=== PATIENT | female | born 1970 | race African-American/Black ===

== ENCOUNTER 2024-05-01 21:15 | Inpatient (IN) | payer OTHER, SELFPAY ==
[~2024-05-01 21:15] MED LIST: Iopamidol-370 76% 500 ML MDV (1 ML CHARGE) ONE
[2024-05-01] MEDS ORDERED: Acetaminophen 500 MG TAB ONE (22:04)
[2024-05-01] MEDS ORDERED: Nitroglycerin 2% Ointment 1 INCH/1 GM Packet ONE (22:04)
[2024-05-01 22:08] LABS: #Basophils 0.07 10x3/uL (0.0-0.2); %Basophils 0.5 % (0.0-1.0); %Eosinophils 0.2 % (0.0-10.0); %Lymphocytes 19.8 % (21.0-51.0); %Monocytes 9.4 % (0.0-10.0); %Neutrophils 69.5 % (42.0-75.0); Hematocrit 25.7 % (36.0-47.0); Hemoglobin 8.1 g/dL (12.0-16.0); Mean Corpuscular HGB CONC 31.5 g/dL (32.0-36.0); Mean Corpuscular Hemoglobin 23.9 pg (27.0-31.0); Mean Corpuscular Volume 75.8 fL (78.0-98.0); Mean Platelet Volume 11.3 fL (7.4-10.4); Platelet Count 268 10x3/uL (130-400); RBC Distribution Width 14.1 % (11.5-14.5); Red Blood Cell (RBC) Count 3.39 mill/uL (4.20-5.40)
[2024-05-01 22:22] LABS: INR-International Normal Ratio 1.2; Prothrombin Time 15.1 sec (12.0-14.7)
[2024-05-01 22:23] LABS: PTT 29.8 sec (22.9-36.1)
[2024-05-01 22:25] LABS: Bilirubin Negative (Negative); Blood, Urine 3+ (Negative); CAUTI Indications for Culture Alt mental st,lethar; Clarity Turbid (Clear); Glucose, Urine (Dipstick) Normal (Negative); Ketone, Urine Negative (Negative); Leukocyte 75 Leu/uL (Negative); Nitrite Negative (Negative); Protein, Urine (Dipstick) 600 mg/dL (Neg-Trace); RBC/HPF 0-3 HPF (0-3); Specific Gravity, Urine 1.023 (1.002-1.036); Urobilinogen Normal mg/dL (Less than 2); WBC/HPF 21-50 HPF (0-3)
[2024-05-01 22:25] LABS: BHCG - Serum Negative (NEGATIVE); Pregs Control Background? CLEAR/WHITE (CLR/WHITE); Pregs Control Bar Appear? YES (CONTROL BAR)
[2024-05-01] MEDS ORDERED: Aspirin 300 MG Suppository ONE (22:26)
[2024-05-01 22:30] LABS: Amphetamine Not Detected (NotDetected); Barbiturates Screen Not Detected (NotDetected); Benzodiazepine Screen Not Detected (NotDetected); Cocaine Metabolite Screen Not Detected (NotDetected); Methadone Not Detected (NotDetected); Methamphetamine Not Detected (NotDetected); Opiate Screen Not Detected (NotDetected); Oxycodone Screen Not Detected (NotDetected); Phencyclidine (PCP) Not Detected (NotDetected); THC/Cannabinoid Screen Not Detected (NotDetected); Tricyclic Screen Not Detected (NotDetected)
[2024-05-01 22:30] LABS: Acetaminophen Less than 10 mcg/mL (10.0-30.0); Alcohol Less than 10.0 mg/dL (Less than 10); Lipase 10 U/L (8-78); Magnesium 1.7 mg/dL (1.6-2.6); Salicylate Less than 8.0 mg/dL (15.0-30.0)
[2024-05-01 22:31] LABS: Bacteria/HPF 1+ HPF (None Seen)
[2024-05-01 22:32] LABS: Urine Culture Reflex Yes Yes
[2024-05-01 22:42] LABS: Troponin I 0.069 ng/mL (< 0.028)
[2024-05-01 22:44] LABS: CK (CPK) 4483 U/L (29-168)
[2024-05-01 22:55] LABS: ALT (SGPT) 26 U/L (8-55); AST (SGOT) 90 U/L (5-34); Albumin 2.9 g/dL (3.5-5.0); Alkaline Phosphatase 81 U/L (40-110); Anion Gap 16 mmol/L (10-20); BUN (Urea Nitrogen) 45 mg/dL (9.8-20.1); Bilirubin, Total 0.5 mg/dL (0.2-1.2); Calc. Creatinine Clearance 0 mL/min (70-130); Calcium 8.8 mg/dL (7.8-10.44); Carbon Dioxide 16 mmol/L (22-29); Chloride 120 mmol/L (98-107); Estimated GFR 9; Globulin 4.1 g/dL (2.4-3.5); Glucose 79 mg/dL (70-105); Potassium 4.3 mmol/L (3.5-5.1); Sodium 148 mmol/L (136-145)
[2024-05-01] MEDS ORDERED: Acetaminophen 650 MG Suppository PR PRN (23:10)
[2024-05-01] MEDS ORDERED: Ondansetron PF 4 MG/2 ML Vial IVP PRN (23:10)
[2024-05-01] MEDS ORDERED: Ondansetron ODT 4 MG TAB PO PRN (23:10)
[2024-05-01 23:13] LABS: Influenza A by NAA Not Detected (NotDetected); Influenza B by NAA Not Detected (NotDetected); SARS-CoV-2 NAA Rapid Test Not Detected (NotDetected)
[2024-05-02 01:38] LABS: Troponin I 0.057 ng/mL (< 0.028)
[2024-05-02] MEDS: Dextrose 5%-Lactated Ringers 1,000 ML IV SCH (03:11)
[2024-05-02 03:38] VITALS: BMI 27.3
[2024-05-02 03:45] LABS: Protein, Urine Random Quant 1395 mg/dL (1-14)
[2024-05-02 03:50] LABS: Sodium, Urine 67 mmol/L (Not Available)
[2024-05-02] MEDS: cefTRIAXone\\ROCEPHIN 1 GM in Sodium Chloride 0.9% 100 ML IVPB SCH (03:56)
[2024-05-02 04:11] LABS: #Basophils 0.05 10x3/uL (0.0-0.2); #Eosinphils Less than 0.03 10x3/uL (0.0-0.7); %Basophils 0.4 % (0.0-1.0); %Eosinophils 0.1 % (0.0-10.0); %Lymphocytes 17.6 % (21.0-51.0); %Monocytes 7.4 % (0.0-10.0); %Neutrophils 73.8 % (42.0-75.0); Hematocrit 24.5 % (36.0-47.0); Hemoglobin 7.6 g/dL (12.0-16.0); Mean Corpuscular Hemoglobin 23.5 pg (27.0-31.0); Mean Corpuscular Volume 75.6 fL (78.0-98.0); Mean Platelet Volume 11.8 fL (7.4-10.4); Platelet Count 251 10x3/uL (130-400); RBC Distribution Width 14.3 % (11.5-14.5); Red Blood Cell (RBC) Count 3.24 mill/uL (4.20-5.40)
[2024-05-02 04:47] LABS: Anion Gap 14 mmol/L (10-20); BUN (Urea Nitrogen) 45 mg/dL (9.8-20.1); Calc. Creatinine Clearance 16 mL/min (70-130); Calcium 8.2 mg/dL (7.8-10.44); Carbon Dioxide 16 mmol/L (22-29); Chloride 120 mmol/L (98-107); Estimated GFR 10; Glucose 127 mg/dL (70-105); Potassium 4.3 mmol/L (3.5-5.1); Sodium 146 mmol/L (136-145)
[2024-05-02 04:53] LABS: Troponin I 0.058 ng/mL (< 0.028)
[2024-05-02] MEDS: hydrALAZINE 25 MG TAB PO SCH ×2 (07:45→09:42)
[2024-05-02] MEDS: NIFEdipine XL 30 MG ER.TAB PO SCH (09:42)
[2024-05-02] MEDS: Famotidine/PF 20 mg/2ml Vial SLOW IVP SCH (09:42)
[2024-05-02] MEDS: Aspirin 81 mg Enteric Coated Tablet PO SCH (09:42)
[2024-05-02] MEDS: Clopidogrel Bisulfate 75 MG TAB PO SCH (09:42)
[2024-05-02] MEDS: Famotidine 20 MG TAB PO SCH (09:42)
[2024-05-02] MEDS: hydrALAZINE 20 MG/ML VIAL SLOW IVP PRN (11:34)
[2024-05-02 11:37] LABS: Base Excess -6.4 mEq/L (-2.0 to +3.0); Calcium, Ionized (venous) 1.07 mmol/L (1.16-1.32); Chloride (VBG) 116 mmol/L (98-106); Hematocrit-VBG 24 % (36.0-47.0); Hemoglobin (Hb) 8.1 g/dL (11.7-16.0); Potassium (VBG) 4.61 mmol/L (3.70-5.30); Sodium 148 mmol/L (133-146); pH (venous) 7.379 (7.32-7.43)
[2024-05-02 11:42] LABS: Actual Bicarbonate (HCO3v) 24.7 mEq/L (22-28); Base Excess -1.7 mEq/L (-2.0 to +3.0); Calcium, Ionized (venous) 1.08 mmol/L (1.16-1.32); Chloride (VBG) 99 mmol/L (98-106); Hematocrit-VBG 50 % (36.0-47.0); Hemoglobin (Hb) 16.9 g/dL (11.7-16.0); Potassium (VBG) 3.33 mmol/L (3.70-5.30); Sodium 142 mmol/L (133-146); pH (venous) 7.331 (7.32-7.43)
[2024-05-02 12:10] VITALS: BMI 27.3
[2024-05-02 12:12] LABS: Hemoglobin A1c 6.2 % (4.0-6.0)
[2024-05-02] MEDS: Naloxone HCl 0.4 mg/ml Vial IV SCH (14:06)
[2024-05-02] MEDS: Labetalol HCl 100 MG/20 ML VIAL SLOW IVP PRN (14:55)
[2024-05-02] MEDS: Dextrose 5 %-0.45 % NaCl 1,000 ML IV SCH (16:37)
[2024-05-02] MEDS: cefTRIAXone\\ROCEPHIN 2 GM in Sodium Chloride 0.9% 100 ML IVPB SCH (21:38)
[2024-05-02] MEDS: Atorvastatin Calcium 40 MG TAB PO SCH (21:39)
[2024-05-02] MEDS: Pantoprazole 40 MG VIAL IVP SCH (21:39)
[2024-05-02] MEDS: Nitroglycerin 2% Ointment 1 INCH/1 GM Packet TOP SCH (21:39)
[2024-05-03 05:37] LABS: #Basophils 0.05 10x3/uL (0.0-0.2); %Basophils 0.4 % (0.0-1.0); %Eosinophils 1.1 % (0.0-10.0); %Lymphocytes 19.6 % (21.0-51.0); %Monocytes 8.3 % (0.0-10.0); %Neutrophils 69.1 % (42.0-75.0); Hematocrit 23.6 % (36.0-47.0); Hemoglobin 7.3 g/dL (12.0-16.0); Mean Corpuscular HGB CONC 30.9 g/dL (32.0-36.0); Mean Corpuscular Hemoglobin 23.5 pg (27.0-31.0); Mean Corpuscular Volume 76.1 fL (78.0-98.0); Mean Platelet Volume 12.3 fL (7.4-10.4); Platelet Count 225 10x3/uL (130-400); RBC Distribution Width 14.5 % (11.5-14.5)
[2024-05-03 06:30] LABS: Iron 34 ug/dL (50-170); Iron Binding Capacity, Total 174 mcg/dL (265-497)
[2024-05-03 06:55] LABS: Anion Gap 16 mmol/L (10-20); BUN (Urea Nitrogen) 43 mg/dL (9.8-20.1); CK (CPK) 1401 U/L (29-168); Calc. Creatinine Clearance 17 mL/min (70-130); Calcium 8.2 mg/dL (7.8-10.44); Carbon Dioxide 17 mmol/L (22-29); Chloride 118 mmol/L (98-107); Estimated GFR 10; Glucose 189 mg/dL (70-105); Iron 34 ug/dL (50-170); Iron Binding Capacity, Total 171 mcg/dL (265-497); Potassium 4.1 mmol/L (3.5-5.1); Sodium 147 mmol/L (136-145)
[2024-05-03 06:58] LABS: Ferritin 381.96 ng/mL (10-291); Vitamin B12 604 pg/mL (211-911)
[2024-05-03 08:41] LABS: HIV (1/2) Antibody/Antigen NONREACTIVE (NonReactive); HIV 1/2 INDEX 0.05 S/CO (<1.00)
[2024-05-03] MEDS ORDERED: Aspirin 300 MG Suppository PR SCH (09:00)
[2024-05-03] MEDS: hydrALAZINE 25 MG TAB PO SCH (09:06)
[2024-05-03] MEDS: Sodium Chloride 0.45% 1,000 ML IV SCH (09:07)
[2024-05-03] MEDS: NIFEdipine XL 60 MG ER.TAB PO SCH (09:07)
[2024-05-03 11:26] LABS: Syphilis Antibody Nonreactive (Nonreactive); Syphilis Antibody Index 0.13 S/CO (<1.00 Non-Reactive)
[2024-05-03] MEDS: Aspirin 81 mg Enteric Coated Tablet PO SCH (15:43)
[2024-05-03] MEDS: Diazepam 2 MG TAB PO PRN (15:43)
[2024-05-04 04:53] LABS: #Basophils 0.04 10x3/uL (0.0-0.2); %Basophils 0.3 % (0.0-1.0); %Lymphocytes 26.9 % (21.0-51.0); %Monocytes 8.5 % (0.0-10.0); %Neutrophils 61.3 % (42.0-75.0); Hematocrit 21.2 % (36.0-47.0); Hemoglobin 6.6 g/dL (12.0-16.0); Mean Corpuscular HGB CONC 31.1 g/dL (32.0-36.0); Mean Corpuscular Volume 77.1 fL (78.0-98.0); Mean Platelet Volume 11.8 fL (7.4-10.4); Platelet Count 195 10x3/uL (130-400); RBC Distribution Width 14.6 % (11.5-14.5); Red Blood Cell (RBC) Count 2.75 mill/uL (4.20-5.40)
[2024-05-04 05:24] LABS: Anion Gap 13 mmol/L (10-20); BUN (Urea Nitrogen) 41 mg/dL (9.8-20.1); Calc. Creatinine Clearance 17 mL/min (70-130); Calcium 7.6 mg/dL (7.8-10.44); Carbon Dioxide 15 mmol/L (22-29); Chloride 116 mmol/L (98-107); Estimated GFR 11; Glucose 82 mg/dL (70-105); Potassium 3.7 mmol/L (3.5-5.1); Sodium 140 mmol/L (136-145)
[2024-05-04 08:14] LABS: INR-International Normal Ratio 1.1; PTT 31.6 sec (22.9-36.1); Prothrombin Time 14.5 sec (12.0-14.7)
[2024-05-04 08:17] LABS: ALT (SGPT) 19 U/L (8-55); AST (SGOT) 29 U/L (5-34); Albumin 2.5 g/dL (3.5-5.0); Alkaline Phosphatase 67 U/L (40-110); Bilirubin, Direct 0.1 mg/dL (0.1-0.3); Bilirubin, Total 0.2 mg/dL (0.2-1.2); Protein, Total 5.8 g/dL (6.0-8.3)
[2024-05-04] MEDS ORDERED: IRON SUCROSE COMPLEX 100 MG/5 ML SLOW IVP SCH (08:30)
[2024-05-04] MEDS: Folic Acid 1 MG TAB PO SCH (09:23)
[2024-05-04] MEDS: Sodium Ferric Gluconate 125 MG in Sodium Chloride 0.9% 100 ML IVPB SCH (14:09)
[2024-05-04 15:01] LABS: Hematocrit 25.9 % (36.0-47.0); Hemoglobin 8.4 g/dL (12.0-16.0); Platelet Count 186 10x3/uL (130-400)
[2024-05-04 15:15] LABS: INR-International Normal Ratio 1.1; PTT 34.5 sec (22.9-36.1); Prothrombin Time 14.3 sec (12.0-14.7)
[2024-05-05] MEDS: Lorazepam 2 MG/ML VIAL SLOW IVP SCH (02:08)
[2024-05-05] MEDS ORDERED: Dextrose 5% in Water 1,000 ML IV PRN (10:31)
[2024-05-05] MEDS ORDERED: Glucagon 1 MG/ML KIT IM PRN (10:31)
[2024-05-05] MEDS ORDERED: Dextrose 50% Abboject 50 ML SYRINGE SLOW IVP PRN (10:31)
[2024-05-05 11:01] LABS: #Basophils 0.04 10x3/uL (0.0-0.2); %Basophils 0.4 % (0.0-1.0); %Eosinophils 2.6 % (0.0-10.0); %Lymphocytes 19.3 % (21.0-51.0); %Monocytes 8.7 % (0.0-10.0); %Neutrophils 67.8 % (42.0-75.0); Hematocrit 27.3 % (36.0-47.0); Hemoglobin 8.4 g/dL (12.0-16.0); Mean Corpuscular HGB CONC 30.8 g/dL (32.0-36.0); Mean Corpuscular Hemoglobin 24.6 pg (27.0-31.0); Mean Corpuscular Volume 79.8 fL (78.0-98.0); Mean Platelet Volume 12.1 fL (7.4-10.4); Platelet Count 190 10x3/uL (130-400); RBC Distribution Width 15.2 % (11.5-14.5); Red Blood Cell (RBC) Count 3.42 mill/uL (4.20-5.40)
[2024-05-05 11:21] LABS: INR-International Normal Ratio 1.1; PTT 32.9 sec (22.9-36.1); Prothrombin Time 14.3 sec (12.0-14.7)
[2024-05-05 11:26] LABS: ALT (SGPT) 19 U/L (8-55); AST (SGOT) 29 U/L (5-34); Albumin 2.6 g/dL (3.5-5.0); Alkaline Phosphatase 75 U/L (40-110); Anion Gap 13 mmol/L (10-20); BUN (Urea Nitrogen) 31 mg/dL (9.8-20.1); Bilirubin, Direct 0.1 mg/dL (0.1-0.3); Bilirubin, Total 0.3 mg/dL (0.2-1.2); Calc. Creatinine Clearance 19 mL/min (70-130); Calcium 8.2 mg/dL (7.8-10.44); Carbon Dioxide 14 mmol/L (22-29); Chloride 117 mmol/L (98-107); Estimated GFR 12; Globulin 3.6 g/dL (2.4-3.5); Glucose 89 mg/dL (70-105); Potassium 3.9 mmol/L (3.5-5.1); Protein, Total 6.2 g/dL (6.0-8.3); Sodium 140 mmol/L (136-145)
[2024-05-05] MEDS: Acetaminophen 325 MG TAB PO PRN (12:25)
[2024-05-05] MEDS: NIFEdipine XL 30 MG ER.TAB PO SCH (14:43)
[2024-05-06 06:34] LABS: ALT (SGPT) 18 U/L (8-55); AST (SGOT) 25 U/L (5-34); Albumin 2.5 g/dL (3.5-5.0); Alkaline Phosphatase 69 U/L (40-110); Anion Gap 13 mmol/L (10-20); BUN (Urea Nitrogen) 30 mg/dL (9.8-20.1); Bilirubin, Total 0.3 mg/dL (0.2-1.2); Calc. Creatinine Clearance 18 mL/min (70-130); Calcium 7.9 mg/dL (7.8-10.44); Carbon Dioxide 15 mmol/L (22-29); Chloride 116 mmol/L (98-107); Estimated GFR 11; Globulin 3.2 g/dL (2.4-3.5); Glucose 64 mg/dL (70-105); Potassium 3.7 mmol/L (3.5-5.1); Protein, Total 5.7 g/dL (6.0-8.3); Sodium 140 mmol/L (136-145)
[2024-05-06 07:04] LABS: #Basophils 0.05 10x3/uL (0.0-0.2); %Basophils 0.5 % (0.0-1.0); %Eosinophils 4.2 % (0.0-10.0); %Lymphocytes 20.3 % (21.0-51.0); %Monocytes 9.3 % (0.0-10.0); Hematocrit 24.9 % (36.0-47.0); Hemoglobin 8.1 g/dL (12.0-16.0); Mean Corpuscular HGB CONC 32.5 g/dL (32.0-36.0); Mean Corpuscular Hemoglobin 25.1 pg (27.0-31.0); Mean Corpuscular Volume 77.1 fL (78.0-98.0); Mean Platelet Volume 12.1 fL (7.4-10.4); Platelet Count 180 10x3/uL (130-400); RBC Distribution Width 15.3 % (11.5-14.5); Red Blood Cell (RBC) Count 3.23 mill/uL (4.20-5.40)
[2024-05-06] MEDS: NIFEdipine XL 90 MG ER.TAB PO SCH (09:00)
[2024-05-07] MEDS: Albumin 25% 25 GM (100 mL) BOT IVPB SCH (00:10)
[2024-05-07 04:58] LABS: #Basophils 0.04 10x3/uL (0.0-0.2); %Basophils 0.5 % (0.0-1.0); %Lymphocytes 22.5 % (21.0-51.0); %Neutrophils 62.2 % (42.0-75.0); Hematocrit 21.9 % (36.0-47.0); Hemoglobin 7.1 g/dL (12.0-16.0); Mean Corpuscular HGB CONC 32.4 g/dL (32.0-36.0); Mean Corpuscular Volume 77.1 fL (78.0-98.0); Mean Platelet Volume 12.1 fL (7.4-10.4); Platelet Count 165 10x3/uL (130-400); RBC Distribution Width 15.8 % (11.5-14.5); Red Blood Cell (RBC) Count 2.84 mill/uL (4.20-5.40)
[2024-05-07 05:18] LABS: ALT (SGPT) 15 U/L (8-55); AST (SGOT) 19 U/L (5-34); Albumin 2.7 g/dL (3.5-5.0); Alkaline Phosphatase 65 U/L (40-110); Anion Gap 9 mmol/L (10-20); BUN (Urea Nitrogen) 27 mg/dL (9.8-20.1); Bilirubin, Total 0.3 mg/dL (0.2-1.2); Calc. Creatinine Clearance 18 mL/min (70-130); Calcium 7.9 mg/dL (7.8-10.44); Carbon Dioxide 16 mmol/L (22-29); Chloride 117 mmol/L (98-107); Estimated GFR 11; Glucose 110 mg/dL (70-105); Potassium 3.6 mmol/L (3.5-5.1); Protein, Total 5.7 g/dL (6.0-8.3); Sodium 138 mmol/L (136-145)
[2024-05-07] MEDS: EPOETIN ALFA-EPBX (ESRD) 10,000 UNITS/ML VIAL SC SCH (13:56)
[2024-05-07 14:23] LABS: Hematocrit 21.4 % (36.0-47.0); Hemoglobin 6.8 g/dL (12.0-16.0)
[2024-05-07] MEDS: Ferrous Sulfate 325 MG TAB PO SCH (20:20)
[2024-05-08 04:14] LABS: #Basophils 0.05 10x3/uL (0.0-0.2); %Basophils 0.5 % (0.0-1.0); %Eosinophils 2.9 % (0.0-10.0); %Lymphocytes 21.6 % (21.0-51.0); %Monocytes 8.6 % (0.0-10.0); %Neutrophils 64.6 % (42.0-75.0); Hematocrit 25.9 % (36.0-47.0); Hemoglobin 8.4 g/dL (12.0-16.0); Mean Corpuscular HGB CONC 32.4 g/dL (32.0-36.0); Mean Corpuscular Hemoglobin 25.4 pg (27.0-31.0); Mean Corpuscular Volume 78.2 fL (78.0-98.0); Mean Platelet Volume 12.1 fL (7.4-10.4); Platelet Count 150 10x3/uL (130-400); RBC Distribution Width 16.8 % (11.5-14.5); Red Blood Cell (RBC) Count 3.31 mill/uL (4.20-5.40)
[2024-05-08 04:37] LABS: ALT (SGPT) 16 U/L (8-55); AST (SGOT) 26 U/L (5-34); Albumin 3.1 g/dL (3.5-5.0); Alkaline Phosphatase 84 U/L (40-110); Anion Gap 12 mmol/L (10-20); BUN (Urea Nitrogen) 24 mg/dL (9.8-20.1); Bilirubin, Total 0.7 mg/dL (0.2-1.2); Calc. Creatinine Clearance 20 mL/min (70-130); Carbon Dioxide 13 mmol/L (22-29); Chloride 116 mmol/L (98-107); Estimated GFR 12; Globulin 2.9 g/dL (2.4-3.5); Glucose 75 mg/dL (70-105); Potassium 3.8 mmol/L (3.5-5.1); Sodium 137 mmol/L (136-145)
[2024-05-08] MEDS: Albumin 25% 25 GM (100 mL) BOT IVPB SCH (12:00)
[2024-05-08] MEDS: hydrALAZINE 25 MG TAB PO SCH (16:00)
[2024-05-09 05:13] LABS: #Basophils 0.06 10x3/uL (0.0-0.2); %Basophils 0.5 % (0.0-1.0); %Eosinophils 2.5 % (0.0-10.0); %Lymphocytes 15.9 % (21.0-51.0); %Neutrophils 70.8 % (42.0-75.0); Hematocrit 23.5 % (36.0-47.0); Hemoglobin 7.7 g/dL (12.0-16.0); Mean Corpuscular HGB CONC 32.8 g/dL (32.0-36.0); Mean Corpuscular Hemoglobin 24.9 pg (27.0-31.0); Mean Corpuscular Volume 76.1 fL (78.0-98.0); Mean Platelet Volume 12.6 fL (7.4-10.4); Platelet Count 159 10x3/uL (130-400); RBC Distribution Width 16.9 % (11.5-14.5); Red Blood Cell (RBC) Count 3.09 mill/uL (4.20-5.40)
[2024-05-09 05:30] LABS: ALT (SGPT) 13 U/L (8-55); AST (SGOT) 21 U/L (5-34); Albumin 3.5 g/dL (3.5-5.0); Alkaline Phosphatase 84 U/L (40-110); Anion Gap 12 mmol/L (10-20); BUN (Urea Nitrogen) 25 mg/dL (9.8-20.1); Bilirubin, Total 0.6 mg/dL (0.2-1.2); Calc. Creatinine Clearance 21 mL/min (70-130); Calcium 8.1 mg/dL (7.8-10.44); Carbon Dioxide 15 mmol/L (22-29); Chloride 117 mmol/L (98-107); Estimated GFR 13; Globulin 2.5 g/dL (2.4-3.5); Glucose 94 mg/dL (70-105); Potassium 3.4 mmol/L (3.5-5.1); Sodium 141 mmol/L (136-145)
[2024-05-09 06:02] LABS: Phosphorus 3.4 mg/dL (2.3-4.7)
[2024-05-09] MEDS: Calcitriol 0.25 MCG CAP PO SCH (08:44)
[2024-05-09] MEDS: Sodium Bicarbonate Tab 325 MG TAB PO SCH (09:52)
[2024-05-10 03:59] LABS: #Basophils 0.05 10x3/uL (0.0-0.2); %Basophils 0.4 % (0.0-1.0); %Eosinophils 1.4 % (0.0-10.0); %Lymphocytes 15.7 % (21.0-51.0); %Monocytes 7.5 % (0.0-10.0); %Neutrophils 72.8 % (42.0-75.0); Hemoglobin 7.9 g/dL (12.0-16.0); Mean Corpuscular HGB CONC 32.9 g/dL (32.0-36.0); Mean Corpuscular Hemoglobin 25.5 pg (27.0-31.0); Mean Corpuscular Volume 77.4 fL (78.0-98.0); Mean Platelet Volume 11.4 fL (7.4-10.4); Platelet Count 164 10x3/uL (130-400); RBC Distribution Width 17.2 % (11.5-14.5)
[2024-05-10 04:24] LABS: ALT (SGPT) 13 U/L (8-55); AST (SGOT) 16 U/L (5-34); Alkaline Phosphatase 86 U/L (40-110); Anion Gap 10 mmol/L (10-20); BUN (Urea Nitrogen) 25 mg/dL (9.8-20.1); Bilirubin, Total 0.6 mg/dL (0.2-1.2); Calc. Creatinine Clearance 21 mL/min (70-130); Calcium 8.1 mg/dL (7.8-10.44); Carbon Dioxide 15 mmol/L (22-29); Chloride 115 mmol/L (98-107); Estimated GFR 13; Globulin 2.6 g/dL (2.4-3.5); Glucose 105 mg/dL (70-105); Potassium 3.2 mmol/L (3.5-5.1); Protein, Total 5.6 g/dL (6.0-8.3); Sodium 137 mmol/L (136-145)
[2024-05-11 04:32] LABS: #Basophils 0.07 10x3/uL (0.0-0.2); %Basophils 0.6 % (0.0-1.0); %Eosinophils 2.3 % (0.0-10.0); %Lymphocytes 18.2 % (21.0-51.0); %Neutrophils 67.8 % (42.0-75.0); Hematocrit 26.1 % (36.0-47.0); Hemoglobin 8.8 g/dL (12.0-16.0); Mean Corpuscular HGB CONC 33.7 g/dL (32.0-36.0); Mean Corpuscular Hemoglobin 25.9 pg (27.0-31.0); Mean Corpuscular Volume 76.8 fL (78.0-98.0); Mean Platelet Volume 11.3 fL (7.4-10.4); Platelet Count 197 10x3/uL (130-400); RBC Distribution Width 17.3 % (11.5-14.5)
[2024-05-11 04:58] LABS: ALT (SGPT) 10 U/L (8-55); AST (SGOT) 14 U/L (5-34); Albumin 3.1 g/dL (3.5-5.0); Alkaline Phosphatase 91 U/L (40-110); Anion Gap 11 mmol/L (10-20); BUN (Urea Nitrogen) 26 mg/dL (9.8-20.1); Bilirubin, Total 0.5 mg/dL (0.2-1.2); Calc. Creatinine Clearance 21 mL/min (70-130); Calcium 8.4 mg/dL (7.8-10.44); Carbon Dioxide 15 mmol/L (22-29); Chloride 114 mmol/L (98-107); Estimated GFR 13; Glucose 128 mg/dL (70-105); Potassium 3.4 mmol/L (3.5-5.1); Protein, Total 6.1 g/dL (6.0-8.3); Sodium 137 mmol/L (136-145)
[2024-05-11] MEDS: Pantoprazole DR 40 MG TAB PO SCH (09:54)
[2024-05-11] MEDS: Potassium Chloride 20 MEQ TAB PO SCH (09:54)
[2024-05-11] MEDS: Sodium Chloride 0.45% 1,000 ML IV SCH (09:56)
[2024-05-11 09:57] LABS: HBsAg Index 0.26 S/CO (0-0.99); Hep B Surf Ag NONREACTIVE S/CO (NonReactive); Hep C IgG Ab NONREACTIVE S/CO (NonReactive); Hep C Index 0.17 S/CO (0-0.79)
[2024-05-11] MEDS: Albumin 25% 25 GM (100 mL) BOT IVPB SCH (13:33)
[2024-05-11] MEDS ORDERED: Docusate 100 MG CAP PO PRN (14:05)
[2024-05-11] MEDS ORDERED: Polyethylene Glycol 3350 17 GM Packet PO PRN (14:05)
[2024-05-11] MEDS: Polyethylene Glycol 3350 17 GM Packet PO SCH (16:04)
[2024-05-11] MEDS: Docusate 100 MG CAP PO SCH (16:04)
[2024-05-12 04:44] LABS: #Basophils 0.06 10x3/uL (0.0-0.2); %Basophils 0.6 % (0.0-1.0); %Eosinophils 2.5 % (0.0-10.0); %Lymphocytes 15.1 % (21.0-51.0); %Monocytes 7.5 % (0.0-10.0); %Neutrophils 72.5 % (42.0-75.0); Hematocrit 23.1 % (36.0-47.0); Hemoglobin 7.7 g/dL (12.0-16.0); Mean Corpuscular HGB CONC 33.3 g/dL (32.0-36.0); Mean Platelet Volume 11.4 fL (7.4-10.4); Platelet Count 183 10x3/uL (130-400); RBC Distribution Width 17.5 % (11.5-14.5); Red Blood Cell (RBC) Count 3.08 mill/uL (4.20-5.40)
[2024-05-12 05:04] LABS: Anion Gap 12 mmol/L (10-20); BUN (Urea Nitrogen) 23 mg/dL (9.8-20.1); Calc. Creatinine Clearance 21 mL/min (70-130); Calcium 8.5 mg/dL (7.8-10.44); Carbon Dioxide 15 mmol/L (22-29); Chloride 112 mmol/L (98-107); Estimated GFR 14; Glucose 116 mg/dL (70-105); Sodium 135 mmol/L (136-145)
[2024-05-12] MEDS: Thiamine 100 MG TAB PO SCH (08:50)
[2024-05-12] MEDS ORDERED: Thiamine HCl 200 MG/2 ML VIAL SLOW IVP SCH (09:00)
[2024-05-12] MEDS: Polyethylene Glycol 3350 17 GM Packet PO SCH (11:40)
[2024-05-12] MEDS: Docusate 100 MG CAP PO SCH (11:40)
[2024-05-12] MEDS: Bisacodyl 10 MG SUPP PR SCH (11:47)
[2024-05-12 13:38] LABS: ANA Symphony (Qualitative) Negative (Negative); ANA Symphony (Quantitative) 0.3 Ratio (< 0.7 Negative); dsDNA IgG Antibody 2.2 IU/mL (<10 Negative)
[2024-05-13 04:23] LABS: Mean Corpuscular HGB CONC 32.8 g/dL (32.0-36.0)
[2024-05-13 04:24] LABS: #Basophils 0.05 10x3/uL (0.0-0.2); %Basophils 0.5 % (0.0-1.0); %Eosinophils 1.9 % (0.0-10.0); %Lymphocytes 14.4 % (21.0-51.0); %Monocytes 7.5 % (0.0-10.0); %Neutrophils 73.8 % (42.0-75.0); Hematocrit 22.9 % (36.0-47.0); Hemoglobin 7.5 g/dL (12.0-16.0); Mean Corpuscular Hemoglobin 24.5 pg (27.0-31.0); Mean Corpuscular Volume 74.8 fL (78.0-98.0); Platelet Count 198 10x3/uL (130-400); Red Blood Cell (RBC) Count 3.06 mill/uL (4.20-5.40)
[2024-05-13 04:35] LABS: Anion Gap 12 mmol/L (10-20); BUN (Urea Nitrogen) 24 mg/dL (9.8-20.1); Calc. Creatinine Clearance 22 mL/min (70-130); Calcium 8.4 mg/dL (7.8-10.44); Carbon Dioxide 15 mmol/L (22-29); Chloride 113 mmol/L (98-107); Estimated GFR 14; Glucose 108 mg/dL (70-105); Sodium 136 mmol/L (136-145)
[2024-05-13] MEDS: NIFEdipine XL 60 MG ER.TAB PO SCH (08:42)
[2024-05-13 11:55] VITALS: BP 192/96; TEMP 98.4
[2024-05-13 14:17] LABS: IgA - Total IgA (Sendout) 150 mg/dL (87-352); Immunoglobulin - G (Sendout) 1201 mg/dL (586-1602); Immunoglobulin - M (Sendout) 72 mg/dL (26-217)
[2024-05-13 18:36] LABS: Cytoplasmic (C-ANCA) Negative titer (Neg:<1:20); Myeloperoxidase AutoAbs <0.2 units (0.0-0.9); Perinuclear (P-ANCA) Negative titer (Neg:<1:20); Proteinase-3 AutoAbs Less than 0.2 units (0.0-0.9)
== END 2024-05-13 16:18 | disposition home or self-care (01) | DRG 71 ==
LOC: ERS 21:15 → 2SE 23:09
PROVIDERS: ADMIT Student in an Organized Health Care Education/Training Program; ATTEND Internal Medicine
PROC: 4A00X4Z Measurement of Central Nervous Electrical Activity, External Approach (ICD-10-PCS; principal; 2024-05-02)
DX: G93.41 Metabolic encephalopathy (principal); E87.0 Hyperosmolality and hypernatremia; N17.9 Acute kidney failure, unspecified; M62.82 Rhabdomyolysis; I12.0 Hypertensive chronic kidney disease with stage 5 chronic kidney disease or end stage renal disease; N18.5 Chronic kidney disease, stage 5; N25.81 Secondary hyperparathyroidism of renal origin; I65.02 Occlusion and stenosis of left vertebral artery; E86.0 Dehydration; D50.9 Iron deficiency anemia, unspecified; R91.8 Other nonspecific abnormal finding of lung field; M19.90 Unspecified osteoarthritis, unspecified site; E11.22 Type 2 diabetes mellitus with diabetic chronic kidney disease; D63.1 Anemia in chronic kidney disease; R82.71 Bacteriuria; K59.00 Constipation, unspecified; Z91.09 Other allergy status, other than to drugs and biological substances; Z79.84 Long term (current) use of oral hypoglycemic drugs; Z79.899 Other long term (current) drug therapy
CPT/HCPCS: 36415; 36416; 36430; 51701; 70496; 70498; 70551; 71045; 71250; 74018; 74177; 76770; 80048; 80053; 80076; 80306; 80307; 81001; 82247; 82533; 82550; 82607; 82728; 82805; 83036; 83516; 83540; 83550; 83605; 83690; 83735; 83880; 83970; 84100; 84156; 84300; 84443; 84484; 84703; 85025; 85046; 85384; 85610; 85730; 86037; 86038; 86225; 86334; 86335; 86780; 86803; 86850; 86900; 86901; 87040; 87086; 87340; 87389; 93005; 93306; 94760; 95700; 95711; 95819; C9113; J0360; J0696; J2060; J2310; J2916; J3411; J3490; J7042; P9016; P9047; Q5105; Q9967